=== PATIENT | male | born 2000 | race Caucasian/White ===

== ENCOUNTER 2024-11-25 13:06 | Emergency (ER) | payer BC ==
[~2024-11-25] VITALS: Ht 167.6 cm; Wt 97.0 kg
[2024-11-25 13:07] VITALS: BP 106/70; PULSE 90; RESP 18; TEMP 36.7; O2SAT 99
== END 2024-11-25 13:46 | disposition home or self-care (01) ==
LOC: ER 13:06
DX: F10.129 Alcohol abuse with intoxication, unspecified (principal); Y90.9 Presence of alcohol in blood, level not specified
CPT/HCPCS: 99283